=== PATIENT | female | born 1965 | race Caucasian/White ===

== ENCOUNTER 2018-10-26 12:57 | Emergency (ER) | payer MEDICAID ==
[~2018-10-26] VITALS: Ht 165.1 cm; Wt 79.5 kg
[~2018-10-26 12:57] MED LIST: CYCL-1 PO; TRAM50TA2 PO
[2018-10-26] MEDS ORDERED: morphine 4 MG/ML inj SYRINge IM ONE (13:50)
[2018-10-26] MEDS ORDERED: ketorolac trometh inj. 60 MG/2 ML VIAL IM ONE (13:50)
--- NOTE | 2018-10-26 14:36 | NUR ---
PATIENT AMBULATED FROM BATHROOM AT THIS TIME INDEPENDENTLY. GAIT STEADY AND BALANCED, NO SIGNS OF DISTRESS NOTED, SAFELY RETURNED TO BED.
[2018-10-26] MEDS ORDERED: HYDR-4353 PO (14:54)
[2018-10-26 15:18] VITALS: BP 107/64
== END 2018-10-26 15:23 | disposition home or self-care (01) ==
LOC: ER 12:58
DX: M54.5 Low back pain (principal); G89.29 Other chronic pain; E03.9 Hypothyroidism, unspecified; Z98.890 Other specified postprocedural states; Z88.8 Allergy status to other drugs, medicaments and biological substances; Z79.899 Other long term (current) drug therapy
CPT/HCPCS: 72170; 72220; 96372; 99283; J1885; J2270

== ENCOUNTER 2018-12-23 14:21 | Emergency (ER) | payer MEDICAID ==
[~2018-12-23] VITALS: Ht 167.6 cm; Wt 76.8 kg
[2018-12-23 14:58] VITALS: BP 122/74
== END 2018-12-23 15:20 | disposition home or self-care (01) ==
LOC: ER 14:22
DX: S13.4XXA Sprain of ligaments of cervical spine, initial encounter (principal); E03.9 Hypothyroidism, unspecified; G89.29 Other chronic pain; F41.9 Anxiety disorder, unspecified; F41.0 Panic disorder [episodic paroxysmal anxiety]; Z98.890 Other specified postprocedural states; Z79.899 Other long term (current) drug therapy; W54.8XXA Other contact with dog, initial encounter; Y93.89 Activity, other specified; Y92.89 Other specified places as the place of occurrence of the external cause; Y99.8 Other external cause status
CPT/HCPCS: 72040; 99283

== ENCOUNTER 2019-01-02 12:02 | Emergency (ER) | payer MEDICAID ==
[~2019-01-02] VITALS: Ht 160 cm; Wt 75.5 kg
[2019-01-02 12:13] VITALS: BP 116/82
[2019-01-02] MEDS ORDERED: ketorolac trometh inj. 60 MG/2 ML VIAL IM ONE (12:55)
[2019-01-02] MEDS ORDERED: ketorolac trometh. 30mg/ml inj. IM ONE (13:00)
== END 2019-01-02 14:47 | disposition home or self-care (01) ==
LOC: ER 12:02
DX: M54.5 Low back pain (principal); M25.552 Pain in left hip; R10.9 Unspecified abdominal pain; E03.9 Hypothyroidism, unspecified; G89.29 Other chronic pain; F41.9 Anxiety disorder, unspecified; Z98.890 Other specified postprocedural states; Z79.899 Other long term (current) drug therapy; X50.1XXA Overexertion from prolonged static or awkward postures, initial encounter; Y93.89 Activity, other specified; Y92.89 Other specified places as the place of occurrence of the external cause; Y99.8 Other external cause status
CPT/HCPCS: 74176; 96372; 99284; J1885

== ENCOUNTER 2019-02-10 12:01 | Emergency (ER) | payer MEDICAID ==
[~2019-02-10] VITALS: Ht 165.1 cm; Wt 80.0 kg
[2019-02-10 12:05] VITALS: BP 127/76
[2019-02-10] MEDS ORDERED: ketorolac tromethamine 15mg/ml inj. IM ONE (13:30)
[2019-02-10] MEDS ORDERED: METH-360 PO (13:56)
[2019-02-10] MEDS ORDERED: DICL100G15 TOP (13:56)
== END 2019-02-10 14:47 | disposition home or self-care (01) ==
LOC: ER 12:01
DX: M54.5 Low back pain (principal); M54.2 Cervicalgia; M25.511 Pain in right shoulder; G89.29 Other chronic pain; F41.9 Anxiety disorder, unspecified; E03.9 Hypothyroidism, unspecified; Z98.890 Other specified postprocedural states; Z79.899 Other long term (current) drug therapy; X50.1XXA Overexertion from prolonged static or awkward postures, initial encounter; Y93.89 Activity, other specified; Y92.89 Other specified places as the place of occurrence of the external cause; Y99.8 Other external cause status
CPT/HCPCS: 72040; 72100; 96372; 99283; J1885

== ENCOUNTER 2019-02-16 18:31 | Emergency (ER) | payer MEDICAID ==
[~2019-02-16] VITALS: Ht 165.1 cm; Wt 75.0 kg
[~2019-02-16 18:31] MED LIST changes: +DICL100G15 TOP; +METH-360 PO
[2019-02-16] MEDS ORDERED: LIDOcaine 5% patch TP STA (19:01)
--- NOTE | 2019-02-16 19:28 | NUR ---
LONG DISCUSSION AND EDUCATION REGARDING NEUROPATHIC PAIN AND GABAPENTIN. PATIENT IS ONLY TAKING 300 MG OF GABAPENTIN ON MOST DAYS DESPITE BEING PRESCRIBED [address] MENDOZA WHO SHE SAW FOR THE BURNING PAIN. DISCUSSED KEEPING MOVING TO PREVENT IMMOBILITY. PATIENT VERBALIZED UNDERSTANDING OF EDUCATION.
--- NOTE | 2019-02-16 19:29 | NUR ---
PATIENT ASKED ME TO LIFT HER LEGS ONTO THE BED I DISCUSSED THE NEED TO USE HER LEGS AND MUSCLES TO PREVENT ATROPHY OF MUSCLES. [facility] PATIENT LIFTED HER LEGS ONTO THE BED.
[2019-02-16 19:32] VITALS: BP 141/75
== END 2019-02-16 19:30 | disposition home or self-care (01) ==
LOC: ER 18:32
DX: M54.2 Cervicalgia (principal); M54.6 Pain in thoracic spine; E03.9 Hypothyroidism, unspecified; G89.29 Other chronic pain; F41.9 Anxiety disorder, unspecified; Z98.890 Other specified postprocedural states; Z79.899 Other long term (current) drug therapy; W18.39XA Other fall on same level, initial encounter; Y93.89 Activity, other specified; Y92.89 Other specified places as the place of occurrence of the external cause; Y99.8 Other external cause status
CPT/HCPCS: 99284

== ENCOUNTER 2019-02-20 14:53 | Emergency (ER) | payer MEDICAID ==
[~2019-02-20] VITALS: Ht 165.1 cm; Wt 71.0 kg
[2019-02-20 15:25] VITALS: BP 161/94
[2019-02-20] MEDS ORDERED: ketorolac tromethamine 15mg/ml inj. IM ONE (18:30)
== END 2019-02-20 18:40 | disposition home or self-care (01) ==
LOC: ER 14:54
DX: M50.31 Other cervical disc degeneration, high cervical region (principal); M50.321 Other cervical disc degeneration at C4-C5 level; K59.00 Constipation, unspecified; E03.9 Hypothyroidism, unspecified; G89.29 Other chronic pain; F41.9 Anxiety disorder, unspecified; F41.0 Panic disorder [episodic paroxysmal anxiety]; Z98.890 Other specified postprocedural states; Z88.8 Allergy status to other drugs, medicaments and biological substances; Z79.899 Other long term (current) drug therapy
CPT/HCPCS: 93005; 96372; 99284; J1885

== ENCOUNTER 2019-10-09 17:21 | Emergency (ER) | payer MEDICAID ==
[~2019-10-09] VITALS: Ht 165.1 cm; Wt 77.3 kg
[~2019-10-09 17:21] MED LIST changes: +LIDOcaine 1% 30ml preserv. free vial ONE
[2019-10-09 21:25] VITALS: BP 147/89
[2019-10-09] MEDS ORDERED: LIDOcaine 5% patch TP STA (21:27)
[2019-10-09] MEDS ORDERED: LIDO700A32 TOP (21:40)
== END 2019-10-09 21:50 | disposition home or self-care (01) ==
LOC: ER 17:22
DX: M54.2 Cervicalgia (principal); M54.5 Low back pain; E03.9 Hypothyroidism, unspecified; G89.29 Other chronic pain; F41.9 Anxiety disorder, unspecified; Z98.890 Other specified postprocedural states; Z79.899 Other long term (current) drug therapy
CPT/HCPCS: 20552; 72100; 72170; 99284; J2001

== ENCOUNTER 2019-10-22 17:12 | Emergency (ER) | payer MEDICAID ==
[~2019-10-22] VITALS: Ht 165.1 cm; Wt 77.3 kg
[~2019-10-22 17:12] MED LIST changes: +LIDO700A32 TOP; -LIDOcaine 1% 30ml preserv. free vial ONE
[2019-10-22] MEDS ORDERED: ZOLP5TAB8 PO (17:55)
[2019-10-22 18:03] LABS: CLARITY,URINE SLIGHTLY CLOUDY (Clear); COLOR,URINE YELLOW (Yellow); GLUCOSE, URINE NEGATIVE (Neg); KETONES,URINE NEGATIVE (Neg); LEUKOCYTE ESTERASE ,URINE SMALL (Neg); NITRITES, URINE NEGATIVE (Neg); OCCULT BLOOD,URINE TRACE-INTACT (Neg); PROTEIN,URINE NEGATIVE (Neg); UROBILINOGEN,URINE 0.2 E.U/dL (0.2-1.0)
[2019-10-22 18:03] LABS: BASOPHILS % (AUTO) 0.3 % (0-1); EOSINOPHILS # (AUTO) 0.3 X10'3 (0-0.9); EOSINOPHILS % (AUTO) 3.2 % (0-6); HEMATOCRIT 39.9 % (35.0-45.0); HEMOGLOBIN 13.2 g/dl (12.0-16.0); LYMPHOCYTES # (AUTO) 1.8 X10'3 (1.1-4.8); LYMPHOCYTES % (AUTO) 22.3 % (21-51); MEAN CORPUSCULAR HEMOGLOBIN 30.7 PG (27.0-31.0); MEAN CORPUSCULAR HGB CONC 33.1 g/dL (33.0-36.5); MEAN CORPUSCULAR VOLUME 92.9 FL (78-98); MEAN PLATELET VOLUME 8.4 FL (7.4-10.4); MONOCYTES # (AUTO) 0.6 X10'3 (0-0.9); MONOCYTES % (AUTO) 7.9 % (2-12); NEUTROPHILS # (AUTO) 5.2 X10'3 (1.8-7.7); NEUTROPHILS % (AUTO) 66.3 % (42-75); PLATELET COUNT 233 X10'3 (140-440); RED BLOOD COUNT 4.29 X10'6 (4.20-5.60); RED CELL DISTRIBUTION WIDTH 12.8 % (11.5-14.5); WHITE BLOOD COUNT 7.9 X10'3 (4.5-11.0)
[2019-10-22 18:09] LABS: UA COLLECTION TYPE CLN CATCH MIDSTREAM
[2019-10-22] MEDS ORDERED: LEVO125T PO (18:09)
[2019-10-22] MEDS ORDERED: CLOM75CA2 PO (18:09)
[2019-10-22] MEDS ORDERED: CLOM25CA2 PO (18:09)
[2019-10-22] MEDS ORDERED: HYDR-3965 PO (18:09)
[2019-10-22] MEDS ORDERED: CLON-528 PO (18:09)
--- NOTE | 2019-10-22 18:09 | NUR ---
pt has had blood drawn, report to on coming RN, pt is calm and cooperative, med rec done, taken to pharmacy
[2019-10-22 18:12] LABS: AMORPHOUS PHOSPHATES 1+; BACTERIA,URINE NONE SEEN /HPF (Neg); RBC,URINE 0-2 /HPF (0-2); SQUAMOUS EPITHELIAL CELL,UR MANY /LPF (FEW); WBC,URINE 0-4 /HPF (0-4)
[2019-10-22 18:16] LABS: ALANINE AMINOTRANSFERASE 11 U/L (12-78); ALBUMIN 3.8 G/DL (3.4-5.0); ALBUMIN/GLOBULIN RATIO 1.1 (1.1-1.5); ALKALINE PHOSPHATASE 64 IU/L (46-116); ANION GAP 6 (8-16); ASPARTATE AMINO TRANSFERASE 13 U/L (10-37); BILIRUBIN,TOTAL 0.4 MG/DL (0.1-1.0); BLOOD UREA NITROGEN 16 MG/DL (7-18); BUN/CREATININE RATIO 23.2 (6.6-38.0); CALCIUM 8.3 MG/DL (8.5-10.1); CHLORIDE 102 MMOL/L (99-107); CREATININE 0.69 MG/DL (0.40-0.90); GLUCOSE 86 MG/DL (70-104); POTASSIUM 3.4 MMOL/L (3.5-5.1); SODIUM 137 MMOL/L (135-145); TOTAL CARBON DIOXIDE 29.1 MMOL/L (24-32); TOTAL PROTEIN 7.4 G/DL (6.4-8.2); eGFR 88 ML/MIN
[2019-10-22 18:16] LABS: URINE AMPHETAMINE SCREEN NEGATIVE (Neg); URINE BARBITUATE SCREEN NEGATIVE (Neg); URINE BENZODIAZEPINES SCREEN NEGATIVE (Neg); URINE CANNABINOID SCREEN NEGATIVE (Neg); URINE COCAINE SCREEN NEGATIVE (Neg); URINE METHADONE SCREEN NEGATIVE (Neg); URINE OPIATE SCREEN NEGATIVE (Neg); URINE PHENCYCLIDINE SCREEN NEGATIVE (Neg)
[2019-10-22 18:25] LABS: ETHANOL < 0.010 GM/DL (0.0-0.010)
--- NOTE | 2019-10-22 18:46 | NUR ---
PT is cooperative with admission assessment. She has a depressed affect and is tearful. She explains she has been struggling with chronis pain due to bilat hip replacements and a spinal fusion. She has become overwhelmed and contemplating suicide since July 2019. She has no specific plan, she is just feeling unable to handle the pain and loss of functioning.
[2019-10-22] MEDS ORDERED: clonazePAM 0.5mg tablet PO PRN (19:30)
[2019-10-22] MEDS ORDERED: HYDROcodone/acetaminophen 5mg/325mg tablet PO PRN (19:30)
--- NOTE | 2019-10-22 19:42 | NUR ---
PACKET FAXED TO [facility].
--- NOTE | 2019-10-22 20:48 | NUR ---
[facility] at bedside with pt. Pt is tearful and cooperative.
[2019-10-22] MEDS ORDERED: CLOMIPRAMINE HCL 25 MG PO SCH (21:00)
[2019-10-22] MEDS ORDERED: CLOMIPRAMINE HCL 75 MG PO SCH (21:00)
[2019-10-22] MEDS ORDERED: zolpidem 5mg tablet PO SCH (21:00)
--- NOTE | 2019-10-22 22:00 | NUR ---
[facility] IS RELEASING PT.
[2019-10-22 22:24] VITALS: BP 126/78
[2019-10-23] MEDS ORDERED: levoTHYROXINE 125mcg tablet PO SCH (08:00)
[2019-10-23] MEDS ORDERED: CLOMIPRAMINE HCL PO SCH (08:00)
== END 2019-10-22 22:20 | disposition home or self-care (01) ==
LOC: ER 17:13
DX: F32.9 Major depressive disorder, single episode, unspecified (principal); G89.4 Chronic pain syndrome; E03.9 Hypothyroidism, unspecified; F41.9 Anxiety disorder, unspecified; Z98.890 Other specified postprocedural states; Z79.899 Other long term (current) drug therapy
CPT/HCPCS: 36415; 80053; 80305; 80320; 81001; 84443; 85025; 99283; 99284